=== PATIENT | female | born 1955 | race Caucasian/White ===

== ENCOUNTER → 2016-10-05 | Outpatient (CLI) | payer BC ==
[~2016-10-05] MED LIST: ACT/45 PO; ALBU1AER9 INH; ASPEC81 PO; ERGO500037 PO; GLIP1TAB91 PO; IBUP-1050 PO; LEVO50TA PO; LISI20TA55 PO; PANT40TA PO
--- NOTE | 2016-10-05 10:59 | DIAGNOSTIC IMAGING REPORT ---
THYROID ULTRASOUND HISTORY: HYPERPARATHRYOIDISM,HYPOTHYROIDISM COMPARISON: None. FINDINGS: Right lobe: 6.4 x 2.3 x 1.9 cm. The gland is heterogeneous. This results in difficult evaluation for a nodule. There are suggestion of 2 nodules within the upper pole which are iso to hypoechoic. These measure 1.3 and 0.8 cm in size. There is also suggestion of a slightly hypoechoic 1.7 x 1.5 x 0.8 cm nodule within the lower pole. Left lobe: 5.2 x 1.7 x 1.7 cm. Heterogeneous. No definite nodules. Isthmus: 5 mm in thickness. Heterogeneous. No definite nodules. IMPRESSION: The gland is diffusely heterogeneous resulting in difficult evaluation for a nodule. There are suggestion of 3 nodules within the right thyroid lobe as described above with the largest in the lower pole measuring 1.7 x 1.5 x 0.8 cm. This lower pole nodule meets sonographic criteria for ultrasound-guided biopsy of a solid nodule. Electronically signed by: Konstantin Whatley M.D. 10/05/2016 10:58 AM Dictated Date/Time: 10/05/2016 10:55 AM
== END | disposition home or self-care (01) ==
LOC: C.ULTR 10:26
PROVIDERS: ATTEND Internal Medicine Endocrinology, Diabetes & Metabolism
DX: E03.9 Hypothyroidism, unspecified (principal); E21.3 Hyperparathyroidism, unspecified

== ENCOUNTER → 2016-10-17 | Outpatient (CLI) | payer BC | END | disposition home or self-care (01) | LOC: C.MAMM 14:21 | PROVIDERS: ATTEND Internal Medicine Endocrinology, Diabetes & Metabolism | DX: M85.89 Other specified disorders of bone density and structure, multiple sites (principal) ==

== ENCOUNTER → 2016-11-05 | Outpatient (CLI) | payer BC ==
--- NOTE | 2016-11-05 19:50 | DIAGNOSTIC IMAGING REPORT ---
NUCLEAR PARATHYROID SCAN CLINICAL HISTORY: Hyperparathyroidism. COMPARISON STUDY: Thyroid ultrasound dated 10/05/2016. TECHNIQUE: Nuclear parathyroid scan is performed following the IV administration of 21.5 mCi of technetium 99m radiolabeled Cardiolite. Images were acquired at 15 minutes and 3 hours postinjection. SPECT imaging was performed. FINDINGS: There is expected activity within the thyroid gland and salivary glands on the 15 minute images. On the delayed images there is mild retention of tracer within the thyroid gland. There is persistent salivary gland activity. There is no convincing scintigraphic evidence of parathyroid adenoma. There is no evidence of ectopic parathyroid tissue. Expected activity seen within the heart and liver. IMPRESSION: There is no evidence of scintigraphic evidence of parathyroid adenoma or ectopic parathyroid tissue. Dictated: 11/05/2016 7:22 PM Transcribed: 11/05/2016 7:49 PM NAT_Chanelle Electronically signed by: Jed Hassan M.D. 11/05/2016 8:15 PM Dictated Date/Time: 11/05/2016 7:22 PM
== END | disposition home or self-care (01) ==
LOC: C.NUCL 14:30
PROVIDERS: ATTEND Internal Medicine Endocrinology, Diabetes & Metabolism
DX: E21.3 Hyperparathyroidism, unspecified (principal)

== ENCOUNTER → 2016-11-07 | Outpatient (CLI) | payer BC ==
--- NOTE | 2016-11-07 12:01 | DIAGNOSTIC IMAGING REPORT ---
ULTRASOUND-GUIDED RIGHT LOBE THYROID FINE-NEEDLE ASPIRATION BIOPSY CLINICAL HISTORY: R04.1 right lobe thyroid nodules COMPARISON STUDY: 10/05/2016 FINDINGS: The risks of the procedure were explained the patient informed consent was obtained. The patient was prepped in sterile fashion. The skin was anesthetized with 1% lidocaine. Under ultrasound guidance, 2 passes into the right lower pole thyroid nodule in question were performed utilizing a 25-gauge needle. Initial pathologic review revealed satisfactory material for diagnosis. There were no immediate complications. IMPRESSION: Successful ultrasound-guided fine-needle aspiration biopsy of a lower pole right lobe thyroid nodule. Electronically signed by: Fabricio Villafana M.D. 11/07/2016 12:00 PM Dictated Date/Time: 11/07/2016 11:59 AM
== END | disposition home or self-care (01) ==
LOC: C.ULTR 10:39
PROVIDERS: ATTEND Internal Medicine Endocrinology, Diabetes & Metabolism
DX: E04.1 Nontoxic single thyroid nodule (principal)

== ENCOUNTER → 2016-12-04 | Outpatient (CLI) | payer BC ==
--- NOTE | 2016-12-04 10:05 | DIAGNOSTIC IMAGING REPORT ---
RENAL ULTRASOUND HISTORY: E21.3 Hyperparathyroidism Pt has hyperparathyroidism looking for COMPARISON: None. FINDINGS: Right kidney: 10.6 cm. No hydronephrosis. Normal corticomedullary differentiation and cortical thickness. Left kidney: 10.8 cm. No hydronephrosis. Normal corticomedullary differentiation and cortical thickness. Bladder: No bladder wall thickening. The bilateral ureteral jets were identified. IMPRESSION: Normal renal ultrasound. Electronically signed by: Konstantin Whatley M.D. 12/04/2016 10:04 AM Dictated Date/Time: 12/04/2016 10:03 AM
== END | disposition home or self-care (01) ==
LOC: C.ULTR 09:27
PROVIDERS: ATTEND Internal Medicine Endocrinology, Diabetes & Metabolism
DX: E21.3 Hyperparathyroidism, unspecified (principal)

== ENCOUNTER → 2017-02-18 | Outpatient (CLI) | payer BC ==
--- NOTE | 2017-02-19 07:42 | MAMMOGRAPHY REPORT ---
BILATERAL DIGITAL SCREENING MAMMOGRAM TOMOSYNTHESIS WITH CAD: 02/18/2017 CLINICAL HISTORY: Routine screening. Patient has no complaints. TECHNIQUE: Breast tomosynthesis in addition to standard 2D mammography was performed. Current study was also evaluated with a Computer Aided Detection (CAD) system. COMPARISON: Comparison is made to exams dated: 02/17/2016 mammogram, 02/14/2015 mammogram, 02/11/2014 mammogram, 02/10/2013 mammogram, 02/06/2012 mammogram, and 01/24/2011 mammogram - [facility]. BREAST COMPOSITION: There are scattered areas of fibroglandular density in both breasts. FINDINGS: There are stable asymmetries in each upper outer quadrant. No suspicious mass, architectur al distortion or cluster of microcalcifications is seen. IMPRESSION: ACR BI-RADS CATEGORY 1: NEGATIVE There is no mammographic evidence of malignancy. A 1 year screening mammogram is recommended. The pa tient will receive written notification of the results. Approximately 10% of breast cancers are not detected with mammography. A negative mammographic report should not delay biopsy if a clinically suggestive mass is present. Corazon Oneill M.D. ay/:02/18/2017 17:15:31 Physical Chemistry Teacher: Abigail Grant M, [facility] letter sent: Normal 1/2 BI-RADS Code: ACR BI-RADS Category 1: Negative
== END | disposition home or self-care (01) ==
LOC: C.MAMM 10:17
PROVIDERS: ATTEND Physician Assistant
DX: Z12.31 Encounter for screening mammogram for malignant neoplasm of breast (principal)

== ENCOUNTER → 2017-04-03 | Outpatient (CLI) | payer BC ==
[~2017-04-03] MED LIST changes: -ASPEC81 PO; +ASPI-320 PO
--- NOTE | 2017-04-03 13:39 | DIAGNOSTIC IMAGING REPORT ---
GASTRIC EMPTYING HISTORY: Pain. Nausea. Bloating. R14.0 Abdominal [id number] COMPARISON: None. TECHNIQUE: Following the oral administration of 1.0 mCi of technetium 99m sulfur colloid in egg sandwich and 8 ounces of water, static abdominal images are obtained anteriorly and posteriorly at 0 minutes, 1 hour, 2 hour, and 4 hour time intervals. Gastric emptying was calculated utilizing the geometric mean method. FINDINGS: There is approximately 78 % activity remaining at the 1 hour time interval (normal is less than 90%), 53 % remaining at the 2 hour time interval (normal is less than 60%), and 0 % activity remaining at the 4 hour time interval (normal is less than 10%). IMPRESSION: No evidence for delayed gastric emptying. Normal study The above report was generated using voice recognition software. It may contain grammatical, syntax or spelling errors. Electronically signed by: Robin Cruz M.D. 04/03/2017 1:37 PM Dictated Date/Time: 04/03/2017 1:36 PM
== END | disposition home or self-care (01) ==
LOC: C.NUCL 08:42
PROVIDERS: ATTEND Internal Medicine Endocrinology, Diabetes & Metabolism
DX: R14.0 Abdominal distension (gaseous) (principal)

== ENCOUNTER 2022-10-01 05:04 | Observation (INO) ==
--- NOTE | 2022-08-28 11:34 | PAT Medication Instructions ---
Medication Instructions Date of Service August 28, 2022 Home Medications Medication Instructions Recorded Velasquez Dsouza #1 ea 08/20/22 lisinopril 30 mg tablet 30 mg PO QAM lorazepam 0.5 mg tablet 0.5 mg PO HS PRN Anxiety L.acidophil-L.casei-B.bifid-B.longum-FOS 2 billion cell-50 mg capsule (Probiotic Blend) 1 cap PO QAM amlodipine 5 mg tablet 5 mg PO QAM cholecalciferol (vitamin D3) 25 mcg (1,000 unit) tablet (Vitamin D3) 25 mcg PO QAM glipizide 5 mg tablet, extended release 24 hr 5 mg PO BID pantoprazole 20 mg tablet,delayed release 20 mg PO BID semaglutide 0.25 mg or 0.5 mg (2 mg/1.5 mL) subcutaneous pen injector (Ozempic) 0.5 mg subcut WK Continue as directed semaglutide 0.25 mg or 0.5 mg (2 mg/1.5 mL) subcutaneous pen injector (Ozempic) 0.5 mg subcut WK DO NOT take the morning of surgery lisinopril 30 mg tablet 30 mg PO QAM L.acidophil-L.casei-B.bifid-B.longum-FOS 2 billion cell-50 mg capsule (Probiotic Blend) 1 cap PO QAM cholecalciferol (vitamin D3) 25 mcg (1,000 unit) tablet (Vitamin D3) 25 mcg PO QAM glipizide 5 mg tablet, extended release 24 hr 5 mg PO BID Take morning of surgery With a small sip of water, OTHERWISE NOTHING TO EAT OR DRINK AFTER MIDNIGHT: amlodipine 5 mg tablet 5 mg PO QAM pantoprazole 20 mg tablet,delayed release 20 mg PO BID Take evening before surgery lorazepam 0.5 mg tablet 0.5 mg PO HS PRN Anxiety (if needed) glipizide 5 mg tablet, extended release 24 hr 5 mg PO BID pantoprazole 20 mg tablet,delayed release 20 mg PO BID Other Notes If you have any questions please call us at [phone] or [phone] or [phone] or [phone]
--- NOTE | 2022-09-06 13:36 | Anesthesiology Consultation ---
Date of Service September 06, 2022 Assessment & Plan (1) Encounter for pre-operative examination: - awaiting PCP response. - check BSG am DOS. - Patient reported h/o "enlarged heart." No cardiomegaly noted on pre-op CXR, no evidence of recently completed echocardiogram to chart review. Case discussed in detail with Dr. Cadet who advised sending pre-op note to PCP with request for consideration to have patient undergo echocardiogram with their office prior to surgery to ensure safety for neuraxial anesthesia. Surgeon's office and patient made aware. - pt requests dentures prior to visitors in post-op/on floor. - Outpatient joint assessment: Patient is currently scheduled for inpatient pathway. If re-evaluated pending system levels during current pandemic/surgeon requests outpatient pathway, patient is not recommended candidate for outpatient joint program from anesthesia standpoint. Chart Review Chart Review: Pending: Refer to Additional Notes / Consult section and Patient seen in Pre Admission Testing Teaching & Discussion Pre-Anesthesia Teaching/Discussion Notes: Instructed NPO after midnight before surgery, except medications with 15 cc of water. Medication instructions provided according to the PAT guidelines. History Surgery Operation Date: 10/01/22 07:00 Proposed Procedures p Left Total Knee Arthroplasty - Hunter Guillen MD Height/Weight Height: 5 ft 4.5 in Weight: 78.925 kg Allergies Allergy/AdvReac Type Severity Reaction Status Date / Time coconut Allergy Intermediate rash Verified 08/28/22 10:48 hydrochlorothiazide Allergy Intermediate "racing Verified 08/28/22 10:48 heart" Medications Home Medications Medication Instructions Recorded Confirmed Last Taken lisinopril 30 mg tablet 30 mg PO QAM 04/04/18 08/28/22 04/22/18 06:00 lorazepam 0.5 mg tablet 0.5 mg PO HS PRN Anxiety 04/04/18 08/28/22 3 Months Ago ~01/20/18 Wheeled Walker #1 ea 08/20/22 08/20/22 Unknown L.acidophil-L.casei-B.bifid-B.longum-FOS 1 cap PO QAM 08/28/22 08/28/22 Unknown 2 billion cell-50 mg capsule (Probiotic Blend) amlodipine 5 mg tablet 5 mg PO QAM 08/28/22 08/28/22 Unknown cholecalciferol (vitamin D3) 25 25 mcg PO QAM 08/28/22 08/28/22 Unknown mcg (1,000 unit) tablet (Vitamin D3) glipizide 5 mg tablet, extended 5 mg PO BID 08/28/22 08/28/22 Unknown release 24 hr pantoprazole 20 mg tablet,delayed 20 mg PO BID 08/28/22 08/28/22 Unknown release semaglutide 0.25 mg or 0.5 mg (2 0.5 mg subcut WK 08/28/22 08/28/22 Unknown mg/1.5 mL) subcutaneous pen injector (Ozempic) Past Medical History Medical History (Updated 09/06/22 @ 13:55 by Denise Kelly PA-C) Anxiety Diabetes mellitus, type 2 NIDDM Enlarged heart no issues/no melter assistant Fibromyalgia GERD (gastroesophageal reflux disease) controlled, stable per pt Hiatal hernia History of COVID-19 04/07/2021--mild symptoms, denies hospitalization, symptoms resolved History of esophageal dilatation Hyperlipidemia diet controlled Hypertension Hypothyroidism went off meds 12/2017--just monitoring levels Migraine Pulmonary embolism 2001 after hysterectomy and serious post-op infection, no longer on blood thinner Tension headache, chronic denies change or worsening Patient denies h/o stroke, seizures, heart attack, heart failure, or blood transfusions. Exercise / Class Metabolic Activity II 4-5 Yardwork/Stairs/Walk up hill (denies chest discomfort or shortness of breath with 1 FOS) Past Family History Family History Mother Family history of diabetes mellitus Daughter Family history of diabetes mellitus Other No family history of adverse response to anesthesia Past Surgical History Surgical History (Updated 09/06/22 @ 13:43 by Denise Kelly PA-C) History of bilateral tubal ligation History of colonoscopy History of esophagogastroduodenoscopy (EGD) History of hysterectomy History of open reduction and internal fixation (ORIF) procedure left thumb--hardware removed History of parathyroidectomy History of repair of left rotator cuff History of repair of right rotator cuff History of right breast biopsy benign History of tooth extraction wisdom teeth Hx of tonsillectomy Past Anesthesia History No Hx of Anesthesia Complications and No Family Hx of Anesthesia Complications History of PONV No Hx of PONV and No Hx of Motion Sickness Social History Smoking Status: Never smoker Do You Dip or Chew Tobacco: No Hx Alcohol Use: Yes Alcohol type: beer, wine and hard liquor alcohol intake frequency: a few times a month Hx Substance Use: No substance use type: does not use Review of Systems Snoring, denies witnessed apneas. Reports negative sleep apnea study yrs ago. Patient denies chest pain, shortness of breath, dyspnea on exertion, fever, chills, cough, wheezing, or palpitations. Physical Exam Vital Signs Vitals BP 165/89, 156/84 manual after patient resting in clinic P 77 TEMP 97.8 SP02 100% on RA RESP 17 Physical Full cervical extension range of motion without pain TMD 3.5 finger breadths Mallampati Score 2 Dentition: full upper dentures and several caps, denies chipped or loose teeth, implants or bridges Lungs: normal respiratory effort. Good air movement, clear throughout to auscultation, no adventitious breath sounds Cardiac: regular rate and rhythm, no murmurs noted Carotid arteries: negative bruit bilat Lab Results Anesthesia Preop Results Results Anesthesia Widget: WBC 7.52 K/ul (4.8-10.8) 09/06/22 Hgb 14.3 g/dl (12.0-16.0) 09/06/22 Hct 42.1 % (37.0-47.0) 09/06/22 Plt 331 K/uL (130-400) 09/06/22 Na 138 mmol/L (136-145) 09/06/22 K 3.6 mmol/L (3.5-5.1) 09/06/22 Cl 101 mmol/L (98-107) 09/06/22 CO2 29 mmol/L (21-32) 09/06/22 BUN 16 mg/dl (6-23) 09/06/22 Creat 0.74 mg/dl (0.6-1.2) 09/06/22 Glucose Level 83 mg/dl (70-99(Fasting)) 09/06/22 PT 10.0 Seconds (9.0-12.0) 09/06/22 PTT 28.2 Seconds (21.0-31.0) 09/06/22 INR 0.9 (0.9-1.1) 09/06/22 TSH 1.729 uIu/ml (0.300-4.500) 09/06/22 HA1c 6.6 % (4.5-5.6) H 09/06/22 Urine Color Yellow 09/06/22 Urine Appearance Clear (Clear) 09/06/22 Urine pH 7.0 (4.5-7.5) 09/06/22 Urine Specific [place] 1.003 (1.000-1.030) 09/06/22 Urine Protein Negative (Negative) 09/06/22 Urine Glucose (UA) Negative (Negative) 09/06/22 Urine Ketones Negative (Negative) 09/06/22 Urine Blood Negative (Negative) 09/06/22 Urine Nitrite Negative (Negative) 09/06/22 Urine Bilirubin Negative (Negative) 09/06/22 Urine Urobilinogen Negative (Negative) 09/06/22 Urine Leukocyte Esterase Negative (Negative) 09/06/22 Blood Type A Positive 09/06/22 Antibody Screen NEGATIVE 09/06/22 Testing Electrocardiogram Date: 09/06/22 NSR, rate 73 bpm Chest X-Ray Date: 09/06/22 No acute chest disease. COVID-19 Risk Screen Screening Information COVID-19 Screen Date: 09/06/22 Exposure 21 Days Family/Household +COVID Last 21 Days: No Exposure 10 Days Any COVID Exposure Last 10 Days: No Symptoms Last 10 Days Experienced COVID Sx Last 10 Days: No + COVID 0-90 Days COVID + in Last 0-90 Days: No
--- NOTE | 2022-09-25 13:57 | History and Physical Report ---
CHIEF COMPLAINT: Left knee pain. HISTORY OF PRESENT ILLNESS: A 67-year-old white female referred by Dr. Dejesus for surgical treatm ent of her left knee. She has got a long history of left knee pain and discomfort and describes it h as gotten worse overtime. She has been through extensive conservative treatment provided with steroi d shots and viscosupplementation, which have become less successful overtime. [place] [facility] [place]. Pain is mostly anterior and medial. Increased with activities. Increased with weightbearing. She would like to have her knee fixed. PAST MEDICAL HISTORY: Past medical history is significant for: 1. Hypertension. 2. History of a DVT/PE after hysterectomy in 2001 without a clotting disorder and off anticoagulatio n. 3. Anxiety. 4. Diabetes x15 years. 5. Gastroesophageal reflux disease. 6. Hiatal hernia. 7. Mild obesity. PAST SURGICAL HISTORY: Includes: 1. Bilateral shoulder surgery. 2. Left thumb surgery. 3. Hysterectomy in 2001. ALLERGIES: COCONUT OIL DICTATION ENDS HERE Job ID: [id number]
--- NOTE | 2022-09-25 22:49 | History and Physical Report ---
ADDENDUM CURRENT MEDICATIONS: Include: 1. Ozempic. 2. Glipizide. 3. Lisinopril. 4. Amlodipine. 5. Pantoprazole. 6. Losartan. 7. Red rice. 8. Probiotics. SOCIAL HISTORY: A 67-year-old female. Rare alcohol intake. Does not smoke. FAMILY HISTORY: Noncontributory. REVIEW OF SYSTEMS: Significant for well-controlled diabetes. Her A1c is 6.6. She does have a histo ry of a DVT and PE after hysterectomy, but nothing after that. No known clotting disorder. Off all anticoagulants. PHYSICAL EXAMINATION: GENERAL: Shows a pleasant middle-aged female. Looks to be in pretty good health. HEENT: Benign. NECK: Supple. No lymphadenopathy. LUNGS: Clear to auscultation. HEART: Has a regular rate and rhythm. ABDOMEN: Soft, nontender, nondistended. EXTREMITIES: Grossly neurovascularly intact except as follows: Examination of the left knee reveals the patient walks with a slight bit of a limp. Slight varus alignment to her knee. Tender over the medial joint line. Small knee effusion. A little bit of bony hypertrophy. Range of motion is 0-12 5. No pain with hip motion. X-RAYS: X-rays of left knee reviewed. It shows advanced medial and patellofemoral compartment arthr itis. She has complete loss of her medial joint space. ASSESSMENT: A 67-year-old female with a history of deep venous thrombosis/pulmonary embolus after pr evious hysterectomy and long-term diabetic, well controlled with advanced left knee degenerative join t disease. She has failed conservative treatment and would like to proceed with left knee replacemen t. PLAN: We are going to proceed with left knee replacement. Risks and benefits of this procedure were explained to the patient and include, but not limited to DVT, PE, , infection, neurological inj ury, vascular injury, bleeding problem, pain, limited range of motion, stiffness, failure to relieve symptoms, incomplete relief of symptoms, etc. The patient understands and desires to proceed. Infor med consent was obtained. She has a history of DVT and PE in the past. We are going to use Xarelto for a month postoperatively . She was seen and had an extensive workup including an echo, which looked pretty good. She has bee n cleared medically. We will proceed as above. Job ID: [id number]
[2022-10-01] MEDS ORDERED: METOCLOPRAMIDE HCL 10 MG TABLET PO SCH (06:00)
[2022-10-01] MEDS ORDERED: LR 500ML BOLUS, THEN 15ML/HR IV SCH (06:00)
[2022-10-01] MEDS ORDERED: Scopolamine 1 MG TDSY TD SCH (06:00)
[2022-10-01] MEDS ORDERED: ceFAZolin 2000MG 2,000 MG/15 ML SYR IV SCH (06:00)
[2022-10-01] MEDS ORDERED: FAMOTIDINE 20 MG TAB PO SCH (06:00)
[2022-10-01] MEDS ORDERED: LR 60ML/HR IV SCH (06:00)
[2022-10-01] MEDS ORDERED: BUPIVACAINE LIPOSOME/PF 266 MG, BUPIVACAINE/EPINEPHRINE 50 ML, SODIUM CHLORIDE 0.9% PF ... INFIL SCH (06:00)
[2022-10-01] MEDS ORDERED: TRANEXAMIC ACID 1,000 MG **IV Intra-op IV SCH (06:00)
[2022-10-01] MEDS ORDERED: CeleBREX 200 MG CAP PO SCH (06:00)
[2022-10-01] MEDS ORDERED: ACETAMINOPHEN 500 MG TAB PO SCH (06:00)
[2022-10-01] MEDS ORDERED: ROPIVACAINE 0.5% 5 MG/ML 30 ML VIAL ONE ×2 (06:17→06:48)
[2022-10-01] MEDS ORDERED: BUPIVACAINE 0.5 % 5 MG/1 ML PF 10ML VIAL ONE (06:17)
[2022-10-01] MEDS ORDERED: SODIUM CHLORIDE 0.9% PF 50 ML VIAL ONE (06:34)
[2022-10-01] MEDS ORDERED: BUPIVACAINE/EPINEPHRINE 0.25% 1:200,000 30 ML VIAL ONE (06:34)
[2022-10-01] MEDS ORDERED: BUPIVACAINE LIPOSOME 1.3% 266 MG/20 ML VIAL ONE (06:34)
[2022-10-01] MEDS ORDERED: ATROPINE SULFATE 0.1 MG/ML 10ML SYR IV PRN (06:36)
[2022-10-01] MEDS ORDERED: ePHEDrine sulfate 50 MG/ML AMP IV PRN (06:36)
[2022-10-01] MEDS ORDERED: ONDANSETRON INJ 2 MG/ML 2 ML VIAL IV PRN ×2 (06:36→09:53)
[2022-10-01] MEDS ORDERED: fentaNYL citrate PF 100 MCG/2 ML VIAL IV PRN (06:36)
[2022-10-01] MEDS ORDERED: MIDAZOLAM HCL 1 MG/ML 2ML VIAL ONE (06:45)
[2022-10-01] MEDS ORDERED: PROPOFOL IV EMULSION 10 MG/ML 20 ML VIAL IV ONE ×2 (06:47→06:50)
--- NOTE | 2022-10-01 06:53 | History & Physical Bridge Note ---
Date of Service October 01, 2022 History & Physical Bridge Note I have examined the patient, reviewed the History & Physical and in the interval since the performance of the History & Physical I have noted the following changes of clinical significance: no changes noted
[2022-10-01] MEDS ORDERED: DEXAMETHASONE SOD INJ 4 MG/ML VIAL ONE (07:57)
--- NOTE | 2022-10-01 08:48 | Operative Report ---
PG Post Operative Report Pre & Post Diagnosis Operation Date: 10/01/22 07:00 Pre-Op Diagnosis: Left Knee Advanced Degenerative Joint Disease Post-Op Diagnosis: Left Knee Advanced Degenerative Joint Disease I identified the patient and participated in the time-out.: Yes Procedure Operation Date: 10/01/22 07:00 Actual Procedures p Left Total Knee Arthroplasty(Left) - Hunter Guillen MD Surgeon Hunter Guillen MD Line Maintainer Section Chip Nino PA-C Estimated Blood Loss 50 Findings Consistent with Post-Op Diagnosis Operative findings were advanced left knee DJD. She did pretty extensive grade 4 [id number] disease of the medial and patellofemoral compartments. She had a varus deformity to her knee osteophytes primarily medially. Marginal joint effusion. Specimens Left knee sent for pathology Anesthesia Type Spinal MAC Complications none Disposition Accompanied Patient To Recovery: No Indications Patient is a 67-year-old female with a several year history of progressive increased pain discomfort in her left knee patient been through extensive conservative treatment which became less excessive over time. She elected proceed with total knee arthroplasty. Description of Procedure Operative implants consist of: 1 Biomet Vanguard size 60 left posterior stabilized femoral component. 2. Biomet size 67 tibial tray. 3. 12 mm post stabilized polyethylene insert. 4. 28 x 8 all poly patella. The patient was taken to the operating room, identified, and placed on the operating table supine position protectors were properly padded. IV antibiotics tried by anesthesia team. A spinal anesthetic and abductor canal block had been provided in the holding area. A Tamayo catheter was placed in sterile fashion the left factor was then placed in the left lower extremity then prepped draped in the usual sterile fashion. The left leg was elevated exsanguinated with use of an Esmarch and the tourniquet placed at 200 mmHg. An anterior approach the left knee was then performed to longitudinal incision centered over the patella. Sharp dissection carried through subcutaneous tissue down the extensor mechanism. A medial parapatellar arthrotomy incision was made. Some subperiosteal dissection was carried out medially. Fat pad was resected from Neath patella tendon. Lateral patellofemoral ligament was released. Patella subluxated laterally knee was flexed with the osteophytes taken on distal femur. The ACL and PCL were then released from distal femur the tibia subluxated anteriorly. External tibial alignment jig was then placed in the interface the tibia and adjusted 14 mm medially. Proximal tibial cut was made remove about 2 to 3 mm of bone from the medial side. Tibia sized to a size 67. Attention drawn the femur. The distal femur examined the sharp drop with intramedullary canal was suction. A left 5 degree valgus cutting guide was placed. This femoral cutting block was pinned in place. Distal femoral cut was made to take an additional 3 mm bone off distal femur. The femur was then sized to a size 60. The AP cutting block was pinned parallel to the epicondylar axis which was 4 degrees of external rotation. Anterior cut, anterior chamfer, posterior cut, posterior chamfer cuts were made. The box cutting guide was placed in the just slightly lateral and the box cut was made. The knee was flexed. The remnants of the medial and lateral menisci were excised. The osteophytes taken off the posterior aspect the femur. Trial femoral component was placed. The tibial tray was pinned in maximum external rotation and the drill and stem punch were used to create defect in the proximal tibia for the tibial tray. The knee was then trialed and the 12 mm insert fit most appropriately. Attention drawn the patella. The patella was cleaned of all soft tissues. Patella thickness measured 22 mm in thickness and was cut down to 12. Was sized to a size 28 patella. The lug holes were drilled for the 28 patella. The lateral osteophytes removed. Patella button was placed. Knee was taken through range of motion and the patella tracked nicely with no thumbs test. Attention drawn to place the permanent components. Nupathe all trial components were removed. Bone plug was placed into the distal femur limit blood loss. Double batch Palacos G cement was mixed. Biomet Vanguard size 60 left posterior stabilized femoral component, size 67 tibial tray, 12 mm pro stabilized polyethylene insert, and a 28 x 8 all Paller patella then cemented in place. Knee was brought out in full extension till cement hardened. Final cement check was then performed. Pericapsular tissues were injected with total of 100 cc of combination of 20 cc of Exparel, 30 cc normal saline, 50 cc of quarter percent Marcaine with epinephrine. Patient did receive 1 g tranexamic acid. The tourniquet is let down for final tourniquet time 52 minutes. Hemostasis reduced electrocautery. Extensor mechanism closed with combination 1 PDS suture #1 Vicryl suture in a [id number] fashion. Extensor mechanism checked found to be intact with subcutaneous tissue then closed 2 Dexon suture in a buried interrupted fashion skin was closed skin marissa. Leg was then cleaned and dried and sterile dressed with Xeroform, 4 fours, sterile cast padding, Que bandage were applied. Patient then transferred to the recovery room in stable condition. Patient tolerated the procedure well and there were no complications. Chip Nino, my physician virtual office assistant, was present for the entire procedure. His assistance was essential and required for appropriate patient positioning, prepping and draping, surgical exposure, performing the technical details of the operation, placement the implants, closure of the wound, and placement of the sterile bandage. I attest to the content of the Intraoperative Record and any orders documented therein. Any exceptions are noted below.
[2022-10-01] MEDS ORDERED: PHENYLEPHRINE 100MCG/ML 5ML SYR ONE (08:52)
--- NOTE | 2022-10-01 09:09 | XRay Report ---
TWO VIEWS LEFT KNEE CLINICAL HISTORY: Postoperative examination. FINDINGS: AP and crosstable lateral portable views of the left knee are obtained. A left knee arthrop lasty is in near anatomic alignment. There has been undersurface remodeling of the patella. No acute fracture is seen. There are expected postoperative changes around the knee including skin clips, soft tissue edema, and subcutaneous gas. IMPRESSION: Expected postoperative changes status post left knee arthroplasty. No acute fracture is s een. ACT 112: Negative or not required by law. Electronically signed by: Jed Hassan M.D. 10/01/2022 9:06 AM
[2022-10-01] MEDS ORDERED: PHARMACY GLYCEMIC MGMT CONSULT PRN (09:53)
[2022-10-01] MEDS ORDERED: NON-FORMULARY MEDICATION (Semaglutide [Ozempic] 0.25 mg or 0.5 mg(2 mg/1.5 mL) Pen Injecto SQ SCH (09:53)
[2022-10-01] MEDS ORDERED: bisacodyL 10 MG SUPP PR PRN (09:53)
[2022-10-01] MEDS ORDERED: CARBOHYDRATES FOR HYPOGLYCEMIA PO PRN (09:53)
[2022-10-01] MEDS ORDERED: GLUCAGON FOR INJ 1 MG VIAL SQ PRN (09:53)
[2022-10-01] MEDS ORDERED: GLUCOSE 10 TAB/TUBE PO PRN (09:53)
[2022-10-01] MEDS ORDERED: NALOXONE HCL 0.4 MG/1 ML VIAL/CARP IV PRN (09:53)
[2022-10-01] MEDS ORDERED: NON-FORMULARY MEDICATION (Glipizide 5 mg Tablet Extended Release 24hr) PO SCH (09:53)
[2022-10-01] MEDS ORDERED: DEXTROSE 50% 50 ML SYRINGE IV PRN (09:53)
[2022-10-01] MEDS ORDERED: LORazepam 0.5 MG TAB PO PRN (09:53)
[2022-10-01] MEDS ORDERED: METOCLOPRAMIDE HCL INJ 5 MG/ML 2 ML VIAL IV PRN (09:53)
[2022-10-01] MEDS ORDERED: GLUCOSE 40% GEL 15 GM TUBE PO PRN (09:53)
[2022-10-01] MEDS ORDERED: ALUMINUM/MAGNESIUM SUSP 30 ML UDC PO PRN (09:53)
[2022-10-01] MEDS ORDERED: MAGNESIUM HYDROXIDE SUSP 30 ML UDC PO PRN (09:53)
[2022-10-01] MEDS ORDERED: SENNA 8.6 MG TAB PO SCH ×2 (09:53→21:00)
[2022-10-01] MEDS ORDERED: HYDROmorphone INJ 0.5 MG/0.5 ML SYR IV PRN (09:53)
[2022-10-01] MEDS: SODIUM CHLORIDE 0.9% 1000ML 1,000 ML IV SCH ×2 (10:04→19:58)
[2022-10-01] MEDS ORDERED: NovoLIN-N (NPH) PER UNIT CHARGE SQ ONE ×2 (10:30→21:30)
[2022-10-01] MEDS: DOCUSATE SODIUM 100 MG CAP PO SCH ×2 (10:33→21:40)
[2022-10-01] MEDS: MULTIVITAMIN TAB PO SCH (10:34)
[2022-10-01] MEDS: PANTOprazole 40 MG TAB PO SCH ×2 (10:34→21:39)
[2022-10-01] MEDS: amLODIPine BESYLATE 5 MG TAB PO SCH (10:35)
[2022-10-01] MEDS: CHOLECALCIFEROL 1,000 UNITS 25 MCG TAB PO SCH (10:36)
[2022-10-01] MEDS: KETOROLAC TROMETHAMINE 15 MG/ML VIAL IV SCH ×3 (10:41→21:38)
--- NOTE | 2022-10-01 10:50 | Anesthesiology Progress Note ---
Date of Service October 01, 2022 Anesthesia Post Procedure Vital Signs Vital Signs: Temp Pulse Pulse Resp BP Pulse Ox O2 Del Method 10/01/22 10:22 97.5 F L 73 14 143/80 H 97 Room Air 10/01/22 09:55 97.7 F 75 18 130/76 98 Room Air 10/01/22 09:00 70 16 119/67 94 Room Air 10/01/22 09:20 98.4 F 69 16 108/63 97 Room Air 10/01/22 09:10 69 16 123/67 94 Room Air 10/01/22 08:50 68 20 95/54 L 99 Oxymask 10/01/22 08:42 97.3 F L 71 21 109/59 L 98 Oxymask 10/01/22 05:44 98.1 F 78 18 165/95 H 99 Room Air O2 Flow Rate 10/01/22 10:22 10/01/22 09:55 10/01/22 09:00 10/01/22 09:20 10/01/22 09:10 10/01/22 08:50 5 10/01/22 08:42 5 10/01/22 05:44 Pain Intensity Left Knee: Pain Intensity: 5 Transfer of Care Handoff Completed per policy Notes Mental Status: alert / awake / arousable and participated in evaluation Patient Amnestic to Procedure: Yes Nausea / Vomiting: adequately controlled Pain: adequately controlled Airway Patency, RR, SpO2: stable & adequate BP & HR: stable & adequate Hydration State: stable & adequate Neuraxial Anesthesia: was administered and sensory block is resolving Anesthetic Complications: no major complications apparent and Pt Satisfied with anesthetic care
[2022-10-01] MEDS ORDERED: PRENATAL VITAMIN 1 TAB PO SCH (11:00)
[2022-10-01] MEDS: lisinopril 10 MG TAB PO SCH (11:07)
[2022-10-01] MEDS: LACTOBACILLUS ACIDOPHILUS 1 GM PACK PO SCH (11:07)
[2022-10-01] MEDS: INSULIN ASPART PER UNIT CHARGE SC SCH ×4 (12:11→21:37)
[2022-10-01] MEDS: oxyCODONE HCL IR 5 MG TAB (IMMEDIATE RELEASE) PO PRN ×2 (12:14→19:49)
[2022-10-01] MEDS: ACETAMINOPHEN 500 MG TAB PO SCH ×2 (14:00→21:40)
[2022-10-01] MEDS: ceFAZolin 2000MG 2,000 MG/15 ML SYR IV SCH ×2 (14:01→23:05)
--- NOTE | 2022-10-01 14:04 | Pharmacy Report ---
Pharmacy Glycemic Short Note 2 - Date of Service October 01, 2022 - Glycemic Short BSG Results (Last 24 hours): 10/01/22 10/01/22 10/01/22 05:22 08:45 12:05 POC Glucose 154 H 124 H 164 H OUTPATIENT ANTIDIABETIC REGIMEN: * Glipizide XL 5 mg Po BIDM * Ozempic 0.5 mg SQ weekly * HbA1C = 6.6% (09/06/22) ASSESSMENT: * Ms Werner is a 67 y/o F with a PMH of T2DM who presents for L knee replacement. * Preop BSG was 154/124 mg/dL. Postop BSG was 164 mg/dL. * Patient received dexamethasone 8 mg during surgery. She is scheduled to received 8 mg PO on POD 1. * Will give NPH 30 units (0.4 units/kg) x 1 for steroid hyperglycemia. * Novolog weight-based stress of 3. Will use tight CR because patient takes glipizide at home and these individuals typically require tighter carbohydrate coverage. PLAN FOR INPATIENT GLYCEMIC CONTROL: * Hold outpatient oral diabetes medications * Basal insulin * NPH 30 units SQ x 1 with additional dose tomorrow, strength dependent on response today * Bolus insulin * NovoLog per scale ACHS or Q6hrs while NPO * Goal Range: Low 110 mg/dL - High 140 mg/dL * Correction Factor: 20 mg/dL/unit * Nutritional / Prandial insulin per carb ratio of 1 unit per 7 grams CHO consumed
[2022-10-01] MEDS: Scopolamine CHECK PATCH PLACEMENT SCH ×2 (15:36→23:11)
[2022-10-01] MEDS ORDERED: TRANEXAMIC ACID / 0.7% NACL 1,000 MG/100 ML BAG IV SCH (16:00)
[2022-10-01] MEDS: ASCORBIC ACID 500 MG TAB PO SCH (17:04)
[2022-10-02] MEDS: INSULIN ASPART PER UNIT CHARGE SC SCH ×3 (00:16→07:56)
[2022-10-02] MEDS: oxyCODONE HCL IR 5 MG TAB (IMMEDIATE RELEASE) PO PRN ×2 (03:06→09:25)
[2022-10-02] MEDS: KETOROLAC TROMETHAMINE 15 MG/ML VIAL IV SCH (04:02)
[2022-10-02] MEDS: CHOLECALCIFEROL 1,000 UNITS 25 MCG TAB PO SCH (07:30)
[2022-10-02 07:32] LABS: Hematocrit (blood only) 34.7 % (37.0-47.0); Hemoglobin 11.7 g/dl (12.0-16.0); Mean Corpuscular Hemoglobin 27.7 pg (25.0-34.0); Mean Corpuscular Hgb Conc 33.7 g/dL (32.0-36.0); Mean Corpuscular Volume 82.2 fL (80.0-100.0); Mean Platelet Volume 9.9 fL (9.4-12.4); Platelet Count 339 K/uL (130-400); RDW Coefficient of Variation 12.7 % (11.5-14.5); RDW Standard Deviation 38.3 fL (36.4-46.3); Red Blood Count 4.22 M/uL (4.20-5.40); White Blood Count 14.63 K/ul (4.8-10.8)
[2022-10-02] MEDS: LACTOBACILLUS ACIDOPHILUS 1 GM PACK PO SCH (07:33)
[2022-10-02] MEDS: ASCORBIC ACID 500 MG TAB PO SCH (07:33)
[2022-10-02] MEDS: Scopolamine CHECK PATCH PLACEMENT SCH (07:34)
[2022-10-02] MEDS: amLODIPine BESYLATE 5 MG TAB PO SCH (07:34)
[2022-10-02] MEDS: MULTIVITAMIN TAB PO SCH (07:34)
[2022-10-02] MEDS: PANTOprazole 40 MG TAB PO SCH (07:34)
[2022-10-02] MEDS: lisinopril 10 MG TAB PO SCH (07:34)
[2022-10-02] MEDS: DOCUSATE SODIUM 100 MG CAP PO SCH (07:34)
[2022-10-02 07:54] LABS: BUN Creatinine Ratio 24.4 (10-20); Calcium 9.5 mg/dl (8.6-10.3); Creatinine Clr Calc Pharmacy 70.6 ml/min; Est GFR (Non-African American) 75.1 ml/min; Potassium 4.1 mmol/L (3.5-5.1)
[2022-10-02] MEDS: ACETAMINOPHEN 500 MG TAB PO SCH (07:55)
[2022-10-02] MEDS ORDERED: dexAMETHasone 4 MG TAB PO SCH (08:00)
[2022-10-02] MEDS ORDERED: RIVAROXABAN 10 MG TABLET PO SCH (09:00)
--- NOTE | 2022-10-02 09:12 | Orthopedic Progress Note ---
Date of Service October 02, 2022 Assessment & Plan (1) Aftercare following left knee joint replacement surgery: 1. DVT prophylax include thigh-high teds, SCDs and Xarelto for 30 days. #2 PT OT weight-bear as tolerated. Left total knee protocol #3 pain control doing well with current pain regimen #4 disposition plan to discharge home with some home health likely today if she does okay in therapy Subjective . 67-year-old female postop day 1 from left knee replacement. She is doing pretty well. Pains a little bit worse this morning but manageable. Therapy went well. No chest pain or shortness of breath. Not feeling dizzy or lightheaded. She is hoping to go home today. Review of Systems All systems reviewed & are unremarkable except as noted in HPI & below. Physical Exam . Physical examination reveals a pleasant middle-age female. Sitting in her bedside chair looks pretty comfortable. Lungs clear to auscultation. Heart is regular rate and rhythm. Ab soft nontender nondistended peer extremities grossly neuro vas intact as follows. Examination left leg reveals the dressing clean dry and intact the leg is well aligned patient can do a straight leg raise. She can dorsiflex and plantarflex her foot appropriately. She is neurologically intact. Results & Data Results & Data Laboratory Results . Laboratory results reveal a hemoglobin 11.7 per hematocrit 34.7. Electrolytes are stable. Diagnostic Findings . PG Care Time/CCT Total # of Minutes Spent Total Time Spent with Patient: Total time spent is greater than 50% in coordination of care (as documented) at patient's floor/unit and/or counseling patient: Coding Level of Care Code 46914 Post Operative Follow-Up Diagnoses Aftercare following left knee joint replacement surgery Z47.1; Z96.652
== END 2022-10-02 11:05 | disposition home health service (06) ==
LOC: ASU 05:04 → 3E 05:04